=== PATIENT | female | born 1935 | race Caucasian/White ===

== ENCOUNTER 2020-12-02 09:05 | Inpatient (IN) | payer MEDICARE, OTHER ==
[2020-12-02] MEDS ORDERED: NOREPINEPHRINE 8 MG in SODIUM CHLORIDE 0.9% 250 ML IV ONE (09:19)
[2020-12-02] MEDS ORDERED: SODIUM CHLORIDE 0.9% 1,000 ML IV ONE (09:26)
[2020-12-02] MEDS ORDERED: IPRATROPIUM-ALBUTEROL 3 ML NEB INHALATION PRN (09:27)
[2020-12-02] MEDS ORDERED: LORazepam 2 MG/ML INJ IV PRN ×2 (09:27)
--- NOTE | 2020-12-02 09:35 | ED ---
General Adult HPI - General Chief complaint: Cardiac Arrest/CPR Stated complaint: Cardiac arrest Time Seen by Provider: 12/02/20 09:05 Source: EMS, RN notes reviewed Mode of arrival: EMS Limitations: altered mental status - History of Present Illness Initial comments: Patient is an 85-year-old female brought to emergency department by EMS, priority, cardiac arrest. Patient normally gets up around 7. Family checked on patient and EMS was called around 812. Bystander CPR was done and discontinued. When fire arrived patient was still warm without obvious signs of and CPR was initiated again. EMS arrived and continued CPR for approximately 20 minutes. They also gave 3 epinephrine and one bicarb with return of circulation. Patient is unresponsive at this time and provides no information. Patient was found unresponsive in the bathroom. No reported trauma. Patient does have history of cardiac disease and stroke previously. Patient is intubated and provides no history. - Related Data Home Medications Medication Instructions Recorded Confirmed Beclomethasone Dipropionate [Qvar 1 puff PO RT-HS 12/02/20 12/02/20 80mcg Redihaler] Carbidopa-Levodopa 25-100 mg 0.5 tab PO QID@07,11,15,19 12/02/20 12/02/20 [Sinemet 25-100] Cimetidine [Tagamet] 400 mg PO BID 12/02/20 12/02/20 Clopidogrel [Plavix] 75 mg PO DAILY 12/02/20 12/02/20 Desloratadine 5 mg PO DAILY 12/02/20 12/02/20 Diltiazem HCl [Diltiazem HCl 24Hr 360 mg PO DAILY 12/02/20 12/02/20 ER ([place])] Fluticasone Nasal [place] [Flonase 1 spray EA NOSTRIL HS 12/02/20 12/02/20 Nasal [place]] Irbesartan 300 mg PO DAILY 12/02/20 12/02/20 Ketoconazole 2% Cream [Nizoral 2%] 1 applic TOPICAL DAILY 12/02/20 12/02/20 LORazepam [Ativan] 1 mg PO BID PRN 12/02/20 12/02/20 Lansoprazole 30 mg PO BID 12/02/20 12/02/20 Levothyroxine Sodium [Synthroid] 75 mcg PO DAILY 12/02/20 12/02/20 Montelukast Sodium [Singulair] 10 mg PO HS 12/02/20 12/02/20 Nitrofurantoin Macrocrystal 50 mg PO DAILY 12/02/20 12/02/20 [Nitrofurantoin] PARoxetine HCL [Paxil] 10 mg PO DAILY 12/02/20 12/02/20 Potassium Chloride [Klor-Con 20] 20 meq PO DAILY 12/02/20 12/02/20 Pravastatin Sodium [Pravachol] 40 mg PO HS 12/02/20 12/02/20 hydroCHLOROthiazide [Hydrodiuril] 50 mg PO DAILY 12/02/20 12/02/20 Review of Systems ROS Statement: Those systems with pertinent positive or pertinent negative responses have been documented in the HPI. ROS Other: All systems not noted in ROS Statement are negative. Limitations: ROS unobtainable due to patients medical condition Past Medical History Past Medical History: CVA/TIA, Myocardial Infarction (MS) History of Any Multi-Drug Resistant Organisms: None Reported Additional Past Surgical History / Comment(s): unable to obtain Past Psychological History: No Psychological Hx Reported Smoking Status: Unknown if ever smoked General Exam Limitations: altered mental status, physical limitation General appearance: obtunded Head exam: Present: atraumatic Eye exam: Present: normal appearance, other (Pupils fixed and dilated) ENT exam: Present: normal oropharynx Neck exam: Present: normal inspection Respiratory exam: Present: normal lung sounds bilaterally (With bag insufflation. Patient is intubated) Cardiovascular Exam: Present: regular rate, normal rhythm Expanded Peripheral pulses: 1+: Radial (R), Radial (L), Posterior Tibialis (R), Posterior Tibialis (L), Dorsalis Pedis (R), Dorsalis Pedis (L), 2+: Carotid (R), Carotid (L), Femoral (R), Femoral (L) GI/Abdominal exam: Present: soft. Absent: distended, tenderness Extremities exam: Present: normal inspection Neurological exam: Present: altered Expanded Eye Response: (1) no response Motor Response: (1) no motor response Verbal Response: (1) no verbal response Psychiatric exam: Present: other (Nonverbal) Skin exam: Present: other (Mild ecchymosis right lateral thigh) Course Vital Signs 12/02/20 12/02/20 12/02/20 09:07 09:18 09:33 Temperature 97.0 F L Pulse Rate 99 92 90 Respiratory 12 12 Rate Blood Pressure 60/40 141/54 43/28 O2 Sat by Pulse Oximetry 12/02/20 12/02/20 12/02/20 09:42 09:45 09:50 Temperature Pulse Rate 56 L 77 Respiratory Rate Blood Pressure 39/21 77/57 75/40 O2 Sat by Pulse Oximetry 12/02/20 12/02/20 12/02/20 10:04 10:13 10:39 Temperature Pulse Rate 45 L 47 L 52 L Respiratory 12 12 12 Rate Blood Pressure 95/38 103/49 100/53 O2 Sat by Pulse 100 100 Oximetry - Reevaluation(s) Reevaluation #1: 12/02/20 09:30 Patient did have pulse on arrival. Pulse became thready with a blood pressure of 60. One half dose of epinephrine was started. Central line in place and patient started on levophed 12/02/20 09:46 Patient became bradycardic and hypotensive. Additional epinephrine given with heart rate 76, blood pressure 120 systolic. 12/02/20 09:52 Family is now present and confirms history. Family does not want patient to have CPR if her heart rate stops again. At this point they do want to continue with diagnostic testing and ventilation. Endotracheal tube was withdrawn 2. cm 12/02/20 11:18 No Central line was attempted in the left subclavian region in regards to findings on CT. 12/02/20 11:19 Patient again reevaluated. Blood pressure 80-100 with Levophed. Additional fluids will be provided. Family updated on results and plan. 12/02/20 11:33 Case was discussed with Dr. Delgado, who will admit For hospital call. 12/02/20 11:48 Dr. Lewis was notified. EKG Findings - EKG Comments: EKG Findings:: Normal sinus rhythm with rate of 98. PA 184. QRS 64. QT 368. QTC 469. Normal axis. Q wave in lead V2. Lateral ST depression. Q wave inversion in inferior. Procedures - ABG Interpretation Ph: 7.1 PCO2: 35.8 PO2: 166 Bicarbonate: 11.3 Interpretation: metabolic acidosis - Central Line Placement Right Femoral Consent Obtained: emergent situation Patient Placed on Monitor/Pulse Ox: Yes Prep: mask, gown, gloves Central Line Prep: Chlorhexidine scrub Ultrasound Used for Placement: No Central Line Lumen Inserted: triple Central Line Position: good blood return, all ports aspirated, flushed, capped, sutured in place with 3-0 nylon Dressing Applied: Tegaderm Complications: none Medical Decision Making - Lab Data Result diagrams: 12/02/20 09:18 12/02/20 09:18 Lab Results 12/02/20 12/02/20 12/02/20 Range/Units 09:18 09:18 09:18 WBC 6.0 (3.8-10.6) k/uL RBC 3.52 L (3.80-5.40) m/uL Hgb 11.8 (11.4-16.0) gm/dL Hct 36.6 (34.0-46.0) % MCV 104.1 H (80.0-100.0) fL MCH 33.6 (25.0-35.0) pg MCHC 32.3 (31.0-37.0) g/dL RDW 13.1 (11.5-15.5) % Plt Count 295 (150-450) k/uL MPV 7.6 Neutrophils % Not Reportable Neutrophils % (Manual) 12 % Band Neuts % (Manual) 1 % Lymphocytes % Not Reportable Lymphocytes % (Manual) 80 % Monocytes % Not Reportable Monocytes % (Manual) 4 % Eosinophils % Not Reportable Eosinophils % (Manual) 1 % Basophils % Not Reportable Myelocytes % 3 % Neutrophils # Not Reportable Neutrophils # (Manual) 0.70 L (1.3-7.7) k/uL Lymphocytes # Not Reportable Lymphocytes # (Manual) 4.80 (1.0-4.8) k/uL Monocytes # Not Reportable Monocytes # (Manual) 0.24 (0-1.0) k/uL Eosinophils # Not Reportable Eosinophils # (Manual) 0.06 (0-0.7) k/uL Basophils # Not Reportable Myelocytes # (Manual) 0.18 H (0) k/uL Nucleated RBCs 1 H (0-0) /100 WBC Manual Slide Review Performed Macrocytosis Slight PT 10.9 (9.0-12.0) sec INR 1.0 (<1.2) APTT 24.0 (22.0-30.0) sec Sample Site ABG pH (7.35-7.45) ABG pCO2 (35-45) mmHg ABG pO2 (83-108) mmHg ABG HCO3 (21-25) mmol/L ABG Total CO2 (19-24) mmol/L ABG O2 Saturation (94-97) % ABG Base Excess mmol/L [place] Test FiO2 % Sodium 140 (137-145) mmol/L Potassium 4.2 (3.5-5.1) mmol/L Chloride 104 (98-107) mmol/L Carbon Dioxide 12 L (22-30) mmol/L Anion Gap 24 mmol/L BUN 29 H (7-17) mg/dL Creatinine 1.72 H (0.52-1.04) mg/dL Est GFR (CKD-EPI)AfAm 31 (>60 ml/min/1.73 sqM) Est GFR (CKD-EPI)NonAf 27 (>60 ml/min/1.73 sqM) Glucose 337 H (74-99) mg/dL POC Glucose (mg/dL) (75-99) mg/dL POC Glu Chief Maintenance Supervisor ID Calcium 10.1 (8.4-10.2) mg/dL Magnesium 2.8 H (1.6-2.3) mg/dL Total Bilirubin 0.3 (0.2-1.3) mg/dL AST 3789 H (14-36) U/L ALT 4079 H (4-34) U/L Alkaline Phosphatase 89 (38-126) U/L Troponin I (0.000-0.034) ng/mL Total Protein 6.3 (6.3-8.2) g/dL Albumin 3.8 (3.5-5.0) g/dL Urine Color Urine Appearance (Clear) Urine pH (5.0-8.0) Ur Specific Central (1.001-1.035) Urine Protein (Negative) Urine Glucose (UA) (Negative) Urine Ketones (Negative) Urine Blood (Negative) Urine Nitrite (Negative) Urine Bilirubin (Negative) Urine Urobilinogen (<2.0) mg/dL Ur Leukocyte Esterase (Negative) Urine RBC (0-5) /hpf Urine WBC (0-5) /hpf Urine WBC Clumps (None) /hpf Ur Squamous Epith Cells (0-4) /hpf Urine Bacteria (None) /hpf Coronavirus (PCR) (Not Detectd) 12/02/20 12/02/20 12/02/20 Range/Units 09:18 09:28 09:34 WBC (3.8-10.6) k/uL RBC (3.80-5.40) m/uL Hgb (11.4-16.0) gm/dL Hct (34.0-46.0) % MCV (80.0-100.0) fL MCH (25.0-35.0) pg MCHC (31.0-37.0) g/dL RDW (11.5-15.5) % Plt Count (150-450) k/uL MPV Neutrophils % Neutrophils % (Manual) % Band Neuts % (Manual) % Lymphocytes % Lymphocytes % (Manual) % Monocytes % Monocytes % (Manual) % Eosinophils % Eosinophils % (Manual) % Basophils % Myelocytes % % Neutrophils # Neutrophils # (Manual) (1.3-7.7) k/uL Lymphocytes # Lymphocytes # (Manual) (1.0-4.8) k/uL Monocytes # Monocytes # (Manual) (0-1.0) k/uL Eosinophils # Eosinophils # (Manual) (0-0.7) k/uL Basophils # Myelocytes # (Manual) (0) k/uL Nucleated RBCs (0-0) /100 WBC Manual Slide Review Macrocytosis PT (9.0-12.0) sec INR (<1.2) APTT (22.0-30.0) sec Sample Site ABG pH (7.35-7.45) ABG pCO2 (35-45) mmHg ABG pO2 (83-108) mmHg ABG HCO3 (21-25) mmol/L ABG Total CO2 (19-24) mmol/L ABG O2 Saturation (94-97) % ABG Base Excess mmol/L [place] Test FiO2 % Sodium (137-145) mmol/L Potassium (3.5-5.1) mmol/L Chloride (98-107) mmol/L Carbon Dioxide (22-30) mmol/L Anion Gap mmol/L BUN (7-17) mg/dL Creatinine (0.52-1.04) mg/dL Est GFR (CKD-EPI)AfAm (>60 ml/min/1.73 sqM) Est GFR (CKD-EPI)NonAf (>60 ml/min/1.73 sqM) Glucose (74-99) mg/dL POC Glucose (mg/dL) 264 H (75-99) mg/dL POC Glu Chief Maintenance Supervisor ID Eleazar Gross Calcium (8.4-10.2) mg/dL Magnesium (1.6-2.3) mg/dL Total Bilirubin (0.2-1.3) mg/dL AST (14-36) U/L ALT (4-34) U/L Alkaline Phosphatase (38-126) U/L Troponin I 0.031 (0.000-0.034) ng/mL Total Protein (6.3-8.2) g/dL Albumin (3.5-5.0) g/dL Urine Color Light Yellow Urine Appearance Cloudy H (Clear) Urine pH 6.5 (5.0-8.0) Ur Specific Central 1.012 (1.001-1.035) Urine Protein Trace H (Negative) Urine Glucose (UA) Negative (Negative) Urine Ketones Negative (Negative) Urine Blood Trace H (Negative) Urine Nitrite Positive H (Negative) Urine Bilirubin Negative (Negative) Urine Urobilinogen <2.0 (<2.0) mg/dL Ur Leukocyte Esterase Large H (Negative) Urine RBC 4 (0-5) /hpf Urine WBC >182 H (0-5) /hpf Urine WBC Clumps Many H (None) /hpf Ur Squamous Epith Cells 1 (0-4) /hpf Urine Bacteria Many H (None) /hpf Coronavirus (PCR) (Not Detectd) 12/02/20 12/02/20 Range/Units 09:36 11:07 WBC (3.8-10.6) k/uL RBC (3.80-5.40) m/uL Hgb (11.4-16.0) gm/dL Hct (34.0-46.0) % MCV (80.0-100.0) fL MCH (25.0-35.0) pg MCHC (31.0-37.0) g/dL RDW (11.5-15.5) % Plt Count (150-450) k/uL MPV Neutrophils % Neutrophils % (Manual) % Band Neuts % (Manual) % Lymphocytes % Lymphocytes % (Manual) % Monocytes % Monocytes % (Manual) % Eosinophils % Eosinophils % (Manual) % Basophils % Myelocytes % % Neutrophils # Neutrophils # (Manual) (1.3-7.7) k/uL Lymphocytes # Lymphocytes # (Manual) (1.0-4.8) k/uL Monocytes # Monocytes # (Manual) (0-1.0) k/uL Eosinophils # Eosinophils # (Manual) (0-0.7) k/uL Basophils # Myelocytes # (Manual) (0) k/uL Nucleated RBCs (0-0) /100 WBC Manual Slide Review Macrocytosis PT (9.0-12.0) sec INR (<1.2) APTT (22.0-30.0) sec Sample Site R rad ABG pH 7.11 L* (7.35-7.45) ABG pCO2 36 (35-45) mmHg ABG pO2 166 H (83-108) mmHg ABG HCO3 11 L (21-25) mmol/L ABG Total CO2 12 L (19-24) mmol/L ABG O2 Saturation 98.3 H (94-97) % ABG Base Excess -18.2 mmol/L [place] Test Yes FiO2 100 % Sodium (137-145) mmol/L Potassium (3.5-5.1) mmol/L Chloride (98-107) mmol/L Carbon Dioxide (22-30) mmol/L Anion Gap mmol/L BUN (7-17) mg/dL Creatinine (0.52-1.04) mg/dL Est GFR (CKD-EPI)AfAm (>60 ml/min/1.73 sqM) Est GFR (CKD-EPI)NonAf (>60 ml/min/1.73 sqM) Glucose (74-99) mg/dL POC Glucose (mg/dL) (75-99) mg/dL POC Glu Chief Maintenance Supervisor ID Calcium (8.4-10.2) mg/dL Magnesium (1.6-2.3) mg/dL Total Bilirubin (0.2-1.3) mg/dL AST (14-36) U/L ALT (4-34) U/L Alkaline Phosphatase (38-126) U/L Troponin I (0.000-0.034) ng/mL Total Protein (6.3-8.2) g/dL Albumin (3.5-5.0) g/dL Urine Color Urine Appearance (Clear) Urine pH (5.0-8.0) Ur Specific Central (1.001-1.035) Urine Protein (Negative) Urine Glucose (UA) (Negative) Urine Ketones (Negative) Urine Blood (Negative) Urine Nitrite (Negative) Urine Bilirubin (Negative) Urine Urobilinogen (<2.0) mg/dL Ur Leukocyte Esterase (Negative) Urine RBC (0-5) /hpf Urine WBC (0-5) /hpf Urine WBC Clumps (None) /hpf Ur Squamous Epith Cells (0-4) /hpf Urine Bacteria (None) /hpf Coronavirus (PCR) Not Detected (Not Detectd) - Radiology Data Radiology results: report reviewed (CT brain and C-spine shows no acute intercranial hemorrhage or cervical fracture. There is concern for left upper chest some air-fluid levels and some venous emphysema without pneumothorax, possible result of chest compressions or line attempt.), image reviewed (Chest x-ray shows endotracheal tube towards right mainstem bronchus.) Critical Care Time Critical Care Time: Yes Total Critical Care Time: 48 Disposition Clinical Impression: Cardiac arrest, Metabolic acidosis, Urinary tract infection Disposition: ADMITTED IP TO THIS [facility] Condition: Critical Is patient prescribed a controlled substance at d/c from ED?: No Referrals: None,Stated [Primary Care Provider] - 1-2 days Decision Time: 11:22
[2020-12-02 09:40] LABS: Glucose,Whole Blood 264 mg/dL (75-99)
[2020-12-02] MEDS ORDERED: NOREPINEPHRINE 32 MG in SODIUM CHLORIDE 0.9% 218 ML IV SCH (09:45)
[2020-12-02 09:47] LABS: Albumin 3.8 g/dL (3.5-5.0); Calcium 10.1 mg/dL (8.4-10.2); Magnesium 2.8 mg/dL (1.6-2.3); Potassium 4.2 mmol/L (3.5-5.1); Total Bilirubin 0.3 mg/dL (0.2-1.3); Total Protein 6.3 g/dL (6.3-8.2)
[2020-12-02 09:59] LABS: Prothrombin Time 10.9 sec (9.0-12.0)
--- NOTE | 2020-12-02 10:08 | XR ---
EXAMINATION TYPE: XR chest 1V portable DATE OF EXAM: 12/02/2020 COMPARISON: NONE HISTORY: Cardiac arrest TECHNIQUE: Single frontal view of the chest is obtained. FINDINGS: Endotracheal tube shows selective intubation of the right mainstem bronchus, NG tube in ap propriate position. Patient is markedly rotated. There are overlying artifacts, defibrillator pads. N o evident pneumothorax or pleural effusion. Heart size difficult to assess due to rotation. Postop ch al noted to the cervical spine. IMPRESSION: Selective right mainstem intubation, report relayed to Dr. Garcia telephonically at the t maggie of interpretation
[2020-12-02 10:11] LABS: HCT 36.6 % (34.0-46.0); HGB 11.8 gm/dL (11.4-16.0); MCH 33.6 pg (25.0-35.0); MCHC 32.3 g/dL (31.0-37.0); MCV 104.1 fL (80.0-100.0); Macrocytosis Slight; Mean Platelet Volume 7.6; Platelet Count 295 k/uL (150-450); RBC 3.52 m/uL (3.80-5.40); RDW 13.1 % (11.5-15.5)
[2020-12-02 10:25] LABS: Appearance,Urine Cloudy (Clear); Bacteria,Urine Many /hpf; Bilirubin,Urine Negative (Negative); Blood,Urine Trace (Negative); Color,Urine Light Yellow; Glucose,Urine (UA) Negative (Negative); Ketones,Urine Negative (Negative); Leukocyte Esterase,Urine Large (Negative); Nitrite,Urine Positive (Negative); PH, Urine 6.5 (5.0-8.0); Protein,Urine Trace (Negative); RBC,Urine 4 /hpf (0-5); Specific Gravity,Urine 1.012 (1.001-1.035); Squamous Epithelial Cell,Urine 1 /hpf (0-4); Urobilinogen,Urine <2.0 mg/dL (<2.0); WBC,Urine >182 /hpf (0-5)
[2020-12-02 10:50] LABS: Band Neutrophils % 1 %; Eosinophils # (M) 0.06 k/uL (0-0.7); Monocytes # (M) 0.24 k/uL (0-1.0); Myelocytes # (M) 0.18 k/uL (0); Myelocytes % 3 %; Neutrophils % (M) 12 %; Nucleated Red Blood Cells 1 /100 WBC (0-0); Total Cells Counted 200
--- NOTE | 2020-12-02 11:04 | CT ---
EXAMINATION TYPE: CT brain andrew smith DATE OF EXAM: 12/02/2020 COMPARISON: None HISTORY: Unresponsive, cardiac arrest CT DLP: 1481.1 mGycm Automated exposure control for dose reduction was used. TECHNIQUE: CT scan of the head and cervical spine are performed without contrast. FINDINGS: There is no acute intracranial hemorrhage, mass effect, or midline shift identified. The ventricles and sulci are within normal limits in size. The globes are intact and the visualized sin uses are clear. Endotracheal tube and NG tube are present. Periventricular white matter shows patchy low attenuation. There is cortical atrophy. Probable lacunar infarct present in the head of the cauda te on the right is subcentimeter in size as is a focus within the cerebellar hemisphere on the right, axial image 14. Cervical spine is visualized in its entirety from C1 through upper thoracic levels and demonstrates s atisfactory alignment without evidence of acute fracture or dislocation. Prevertebral soft tissue ap pears within normal limits. The C1-C2 articulation is unremarkable. Postop changes are present stat us post anterior cervical fusion and discectomy at C4-C6. Is multilevel facet arthropathy, foraminal encroachment. Some atelectatic changes are suspected at the posterior lungs. Subcutaneous emphysema i s noted along the left lateral chest wall, there are multiple air-fluid levels present extending luly g the region of the subclavian vessels, some local air bubbles are noted anterior to the upper lung a long the pleural margin without definitive pneumothorax, correlate for prior attempted Central line i nsertion on the left, there may be some local hemorrhage along the pleural space in the left upper ch est. There is likely anterior rib fracture, sagittal image 27 at the left first rib, findings could b e related to chest compressions, question deformity the anterior right second rib. IMPRESSION: 1. There is no acute fracture or dislocation evident in the cervical spine. 2. No acute intracranial hemorrhage, mass effect, or midline shift is seen. 3. Findings in the left upper chest as described, correlate for attempted line insertion at this leve l as described versus chest compressions.
[2020-12-02 11:11] LABS: ABG Base Excess -18.2 mmol/L; ABG HCO3 11 mmol/L (21-25); ABG Oxygen Saturation 98.3 % (94-97); ABG PCO2 36 mmHg (35-45); ABG PO2 166 mmHg (83-108); ABG TCO2 12 mmol/L (19-24); Allen Test Performed? Yes
[2020-12-02 11:16] LABS: ABG PH 7.11 (7.35-7.45)
[2020-12-02] MEDS ORDERED: SODIUM BICARB 8.4% 50 ML SYR (1 MEQ/ML) IV STA (11:16)
[2020-12-02] MEDS ORDERED: SODIUM CHLORIDE 0.9% 1,000 ML IV STA ×2 (11:16)
[2020-12-02] MEDS ORDERED: NALOXONE 0.4 MG/ML 1 ML VIAL IV PRN (11:22)
[2020-12-02] MEDS ORDERED: DEXTROSE 5% IN WATER 1,000 ML with SODIUM BICARB (1 MEQ/ML) 150 ML IV SCH (11:30)
[2020-12-02 12:24] LABS: Glucose,Whole Blood 276 mg/dL (75-99)
[2020-12-02 12:28] VITALS: BP 88/52
[2020-12-02 13:02] VITALS: PULSE 0; RESP 18; TEMP 94.3
--- NOTE | 2020-12-02 15:39 | P.HPIM ---
History of Present Illness H&P Date: 12/02/20 Chief Complaint: Cardiac arrest Briefly, this unfortunate 85-year-old woman with a history of hypertension, ambulates with a walker, living independently at home was found unconscious in her home. Bystander CPR was attempted while EMS was called. EMS resumed CPR for an additional 20 minutes, patient received multiple rounds of epinephrine, and ultimately regained circulation. In the emergency room, patient required epinephrine drip and levo fed to maintain blood pressures and heart rate. Patient's family indicated the patient would be no code. Upon my assessment, I noted that patient did not have any withdrawal to pain in all extremities, did have a gag, no cough, pupils were dilated without response to light, only mild oculomotor reflex. Patient was on 32 mics of Levophed at the time of my evaluation. After discussing patient's condition with family, family opted for hospice care. Past Medical History Past Medical History: CVA/TIA, Myocardial Infarction (MD) History of Any Multi-Drug Resistant Organisms: None Reported Additional Past Surgical History / Comment(s): unable to obtain Past Psychological History: No Psychological Hx Reported Smoking Status: Unknown if ever smoked Medications and Allergies Home Medications Medication Instructions Recorded Confirmed Type Beclomethasone Dipropionate [Qvar 1 puff PO RT-HS 12/02/20 12/02/20 History 80mcg Redihaler] Carbidopa-Levodopa 25-100 mg 0.5 tab PO QID@07,11,15,19 12/02/20 12/02/20 History [Sinemet 25-100] Cimetidine [Tagamet] 400 mg PO BID 12/02/20 12/02/20 History Clopidogrel [Plavix] 75 mg PO DAILY 12/02/20 12/02/20 History Desloratadine 5 mg PO DAILY 12/02/20 12/02/20 History Diltiazem HCl [Diltiazem HCl 24Hr 360 mg PO DAILY 12/02/20 12/02/20 History ER ([place])] Fluticasone Nasal [place] [Flonase 1 spray EA NOSTRIL HS 12/02/20 12/02/20 History Nasal [place]] Irbesartan 300 mg PO DAILY 12/02/20 12/02/20 History Ketoconazole 2% Cream [Nizoral 2%] 1 applic TOPICAL DAILY 12/02/20 12/02/20 History LORazepam [Ativan] 1 mg PO BID PRN 12/02/20 12/02/20 History Lansoprazole 30 mg PO BID 12/02/20 12/02/20 History Levothyroxine Sodium [Synthroid] 75 mcg PO DAILY 12/02/20 12/02/20 History Montelukast Sodium [Singulair] 10 mg PO HS 12/02/20 12/02/20 History Nitrofurantoin Macrocrystal 50 mg PO DAILY 12/02/20 12/02/20 History [Nitrofurantoin] PARoxetine HCL [Paxil] 10 mg PO DAILY 12/02/20 12/02/20 History Potassium Chloride [Klor-Con 20] 20 meq PO DAILY 12/02/20 12/02/20 History Pravastatin Sodium [Pravachol] 40 mg PO HS 12/02/20 12/02/20 History hydroCHLOROthiazide [Hydrodiuril] 50 mg PO DAILY 12/02/20 12/02/20 History Allergies Allergy/AdvReac Type Severity Reaction Status Date / Time Sulfa (Sulfonamide AdvReac Nausea & Verified 12/02/20 11:49 Antibiotics) Vomiting Physical Exam Osteopathic Statement: *. No significant issues noted on an osteopathic st ructural exam other than those noted in the History and Physical/Consult. Vitals: Vital Signs Temp Pulse Resp BP Pulse Ox 12/02/20 12:40 0 L 18 12/02/20 12:36 94.3 F L 39 L 18 12/02/20 12:15 48 L 12 88/52 100 12/02/20 12:10 97/32 12/02/20 12:00 57 L 7 L 57/31 12/02/20 11:50 57 L 7 L 62/44 12/02/20 11:44 53 L 14 111/57 12/02/20 11:40 56 L 7 L 70/41 12/02/20 11:30 57 L 6 L 50/29 43 L 12/02/20 11:20 56 L 6 L 117/96 12/02/20 11:10 56 L 5 L 83/50 100 12/02/20 11:00 56 L 5 L 69/46 100 12/02/20 10:50 54 L 3 L 103/42 97 12/02/20 10:40 52 L 4 L 100/53 100 12/02/20 10:39 52 L 12 100/53 100 12/02/20 10:20 50 L 55 H 103/42 12/02/20 10:13 47 L 12 103/49 12/02/20 10:10 47 L 0 L 96/32 12/02/20 10:04 45 L 12 95/38 100 12/02/20 10:00 46 L 22 95/36 12/02/20 09:50 57 L 78 H 116/44 12/02/20 09:45 77 77/57 12/02/20 09:42 56 L 39/21 12/02/20 09:40 89 113 H 44/12/02/20 09:36 80 131 H 12/02/20 09:33 97.0 F L 90 12 4312/02/20 09:18 92 141/54 12/02/20 09:07 99 12 60/40 Intake and Output 12/02/20 12/02/20 12/02/20 06:59 14:59 22:59 Intake Total 2.629 Balance 2.629 Intake: Intake, IV Titration 2.629 Amount Norepinephrine 32 mg In 2.629 Sodium Chloride 0.9% 218 ml @ 0.05 MCG/KG/MIN 2. 286 mls/hr IV .Q24H [facility] Rx#:[id number] Other: Weight 73.7 kg Gen: Intubated HEENT: Fixed, dilated, mild oculomotor reflex Resp: Vent, not breathing over, positive gag, negative cough CVS: Tachycardic with sinus rhythm : no SPT, no CVAT, michelle catheter is present MSK: No pitting edema, no clubbing Neuro: no withdrawal to pain Results CBC & Chem 7: 12/02/20 09:18 12/02/20 09:18 Labs: Abnormal Lab Results - Last 24 Hours (Table) 12/02/20 12/02/20 12/02/20 Range/Units 09:18 09:18 09:28 RBC 3.52 L (3.80-5.40) m/uL MCV 104.1 H (80.0-100.0) fL Neutrophils # (Manual) 0.70 L (1.3-7.7) k/uL Myelocytes # (Manual) 0.18 H (0) k/uL Nucleated RBCs 1 H (0-0) /100 WBC ABG pH (7.35-7.45) ABG pO2 (83-108) mmHg ABG HCO3 (21-25) mmol/L ABG Total CO2 (19-24) mmol/L ABG O2 Saturation (94-97) % Carbon Dioxide 12 L (22-30) mmol/L BUN 29 H (7-17) mg/dL Creatinine 1.72 H (0.52-1.04) mg/dL Glucose 337 H (74-99) mg/dL POC Glucose (mg/dL) 264 H (75-99) mg/dL Magnesium 2.8 H (1.6-2.3) mg/dL AST 3789 H (14-36) U/L ALT 4079 H (4-34) U/L Ammonia (<30) umol/L Urine Appearance (Clear) Urine Protein (Negative) Urine Blood (Negative) Urine Nitrite (Negative) Ur Leukocyte Esterase (Negative) Urine WBC (0-5) /hpf Urine WBC Clumps (None) /hpf Urine Bacteria (None) /hpf 12/02/20 12/02/20 12/02/20 Range/Units 09:34 11:07 11:22 RBC (3.80-5.40) m/uL MCV (80.0-100.0) fL Neutrophils # (Manual) (1.3-7.7) k/uL Myelocytes # (Manual) (0) k/uL Nucleated RBCs (0-0) /100 WBC ABG pH 7.11 L* (7.35-7.45) ABG pO2 166 H (83-108) mmHg ABG HCO3 11 L (21-25) mmol/L ABG Total CO2 12 L (19-24) mmol/L ABG O2 Saturation 98.3 H (94-97) % Carbon Dioxide (22-30) mmol/L BUN (7-17) mg/dL Creatinine (0.52-1.04) mg/dL Glucose (74-99) mg/dL POC Glucose (mg/dL) (75-99) mg/dL Magnesium (1.6-2.3) mg/dL AST (14-36) U/L ALT (4-34) U/L Ammonia 57 H (<30) umol/L Urine Appearance Cloudy H (Clear) Urine Protein Trace H (Negative) Urine Blood Trace H (Negative) Urine Nitrite Positive H (Negative) Ur Leukocyte Esterase Large H (Negative) Urine WBC >182 H (0-5) /hpf Urine WBC Clumps Many H (None) /hpf Urine Bacteria Many H (None) /hpf 12/02/20 Range/Units 12:22 RBC (3.80-5.40) m/uL MCV (80.0-100.0) fL Neutrophils # (Manual) (1.3-7.7) k/uL Myelocytes # (Manual) (0) k/uL Nucleated RBCs (0-0) /100 WBC ABG pH (7.35-7.45) ABG pO2 (83-108) mmHg ABG HCO3 (21-25) mmol/L ABG Total CO2 (19-24) mmol/L ABG O2 Saturation (94-97) % Carbon Dioxide (22-30) mmol/L BUN (7-17) mg/dL Creatinine (0.52-1.04) mg/dL Glucose (74-99) mg/dL POC Glucose (mg/dL) 276 H (75-99) mg/dL Magnesium (1.6-2.3) mg/dL AST (14-36) U/L ALT (4-34) U/L Ammonia (<30) umol/L Urine Appearance (Clear) Urine Protein (Negative) Urine Blood (Negative) Urine Nitrite (Negative) Ur Leukocyte Esterase (Negative) Urine WBC (0-5) /hpf Urine WBC Clumps (None) /hpf Urine Bacteria (None) /hpf Assessment and Plan Assessment: Cardiac arrest Acute hypoxemic respiratory failure Shock liver -Patient's family has opted for hospice/comfort care. Hospice was consulted. -Transitioned patient to morphine drip -Extubate
--- NOTE | 2020-12-02 15:41 | P.DS ---
Providers Date of admission: 12/02/20 11:22 Expected date of discharge: 12/02/20 Attending physician: Kalyn Delgado MD Consults: 12/02/20 11:22 Consult Physician Stat Consulting Provider: Pedro Lewis Consult Reason/Comments: crtical care Do you want consulting provider notified?: Yes 12/02/20 11:23 Consult Physician Urgent Consulting Provider: Rory Villarreal Consult Reason/Comments: cardiac arrest Do you want consulting provider notified?: Yes Primary care physician: Stated None Hospital Course: Patient from complications after cardiac arrest Plan - Discharge Summary New Discharge Prescriptions: No Action Ketoconazole 2% Cream [Nizoral 2%] 1 applic TOPICAL DAILY Pravastatin Sodium [Pravachol] 40 mg PO HS Diltiazem HCl [Diltiazem HCl 24Hr ER (LA)] 360 mg PO DAILY Beclomethasone Dipropionate [Qvar 80mcg Redihaler] 1 puff PO RT-HS hydroCHLOROthiazide [Hydrodiuril] 50 mg PO DAILY Lansoprazole 30 mg PO BID Cimetidine [Tagamet] 400 mg PO BID Montelukast Sodium [Singulair] 10 mg PO HS Clopidogrel [Plavix] 75 mg PO DAILY Levothyroxine Sodium [Synthroid] 75 mcg PO DAILY Nitrofurantoin Macrocrystal [Nitrofurantoin] 50 mg PO DAILY LORazepam [Ativan] 1 mg PO BID PRN PRN Reason: Anxiety Fluticasone Nasal [place] [Flonase Nasal [place]] 1 spray EA NOSTRIL HS Desloratadine 5 mg PO DAILY Carbidopa-Levodopa 25-100 mg [Sinemet 25-100] 0.5 tab PO QID@,,, Potassium Chloride [Klor-Con 20] 20 meq PO DAILY PARoxetine HCL [Paxil] 10 mg PO DAILY Irbesartan 300 mg PO DAILY Discharge Medication List Beclomethasone Dipropionate [Qvar 80mcg Redihaler] 1 puff PO RT-HS 12/02/20 [History] Carbidopa-Levodopa 25-100 mg [Sinemet 25-100] 0.5 tab PO QID@,,,19 12/02/20 [History] Cimetidine [Tagamet] 400 mg PO BID 12/02/20 [History] Clopidogrel [Plavix] 75 mg PO DAILY 12/02/20 [History] Desloratadine 5 mg PO DAILY 12/02/20 [History] Diltiazem HCl [Diltiazem HCl 24Hr ER (LA)] 360 mg PO DAILY 12/02/20 [History] Fluticasone Nasal [place] [Flonase Nasal [place]] 1 spray EA NOSTRIL HS 12/02/20 [History] Irbesartan 300 mg PO DAILY 12/02/20 [History] Ketoconazole 2% Cream [Nizoral 2%] 1 applic TOPICAL DAILY 12/02/20 [History] LORazepam [Ativan] 1 mg PO BID PRN 12/02/20 [History] Lansoprazole 30 mg PO BID 12/02/20 [History] Levothyroxine Sodium [Synthroid] 75 mcg PO DAILY 12/02/20 [History] Montelukast Sodium [Singulair] 10 mg PO HS 12/02/20 [History] Nitrofurantoin Macrocrystal [Nitrofurantoin] 50 mg PO DAILY 12/02/20 [History] PARoxetine HCL [Paxil] 10 mg PO DAILY 12/02/20 [History] Potassium Chloride [Klor-Con 20] 20 meq PO DAILY 12/02/20 [History] Pravastatin Sodium [Pravachol] 40 mg PO HS 12/02/20 [History] hydroCHLOROthiazide [Hydrodiuril] 50 mg PO DAILY 12/02/20 [History] Follow up Appointment(s)/Referral(s): None,Stated [Primary Care Provider] - 1-2 days Discharge Disposition: - Preliminary Cause of Preliminary Cause of : Sudden cardiac
[2020-12-02] MEDS ORDERED: CHLORHEXIDINE GLUCONATE 15 ML CUP MUCOUS MEM SCH (21:00)
[2020-12-03] MEDS ORDERED: PANTOPRAZOLE 40 MG/10 ML VIAL IV SCH (09:00)
== END 2020-12-02 12:44 | disposition expired | DRG 296 ==
LOC: EC 09:05 → 2SICU 11:22
PROVIDERS: ADMIT Internal Medicine; ATTEND Internal Medicine
PROC: 5A1935Z Respiratory Ventilation, Less than 24 Consecutive Hours (ICD-10-PCS; principal; 2020-12-02)
PROC: 06HY33Z Insertion of Infusion Device into Lower Vein, Percutaneous Approach (ICD-10-PCS; 2020-12-02)
PROC: 0DH67UZ Insertion of Feeding Device into Stomach, Via Natural or Artificial Opening (ICD-10-PCS; 2020-12-02)
PROC: 3E033XZ Introduction of Vasopressor into Peripheral Vein, Percutaneous Approach (ICD-10-PCS; 2020-12-02)
DX: I46.9 Cardiac arrest, cause unspecified (principal); J96.01 Acute respiratory failure with hypoxia; K72.00 Acute and subacute hepatic failure without coma; E87.2 Acidosis; N39.0 Urinary tract infection, site not specified; T79.7XXA Traumatic subcutaneous emphysema, initial encounter; I10 Essential (primary) hypertension; Z20.822 Contact with and (suspected) exposure to COVID-19; I25.2 Old myocardial infarction; Z66 Do not resuscitate; Z79.02 Long term (current) use of antithrombotics/antiplatelets; Z79.890 Hormone replacement therapy; Z79.899 Other long term (current) drug therapy; Z86.73 Personal history of transient ischemic attack (TIA), and cerebral infarction without residual deficits; Z88.2 Allergy status to sulfonamides; Y84.8 Other medical procedures as the cause of abnormal reaction of the patient, or of later complication, without mention of misadventure at the time of the procedure
CPT/HCPCS: 36415; 36556; 36600; 70450; 71045; 72125; 80053; 81001; 82140; 82805; 83735; 84484; 85025; 85610; 85730; 87086; 87635; 93005; 94002; 99291